=== PATIENT | male | born 1975 | race Caucasian/White ===

== ENCOUNTER 2020-03-18 10:19 | Emergency (ER) | payer OTHER ==
[~2020-03-18] VITALS: Ht 193 cm; Wt 132.9 kg
[2020-03-18] MEDS ORDERED: FLONASE 0.05%50 MCG NARES (10:36)
[2020-03-18] MEDS ORDERED: ASPIRIN EC325 M1 PO (10:37)
[2020-03-18 10:45] LABS: ABSOLUTE NEUTROPHILS 3.6 thou/uL (1.4-8.2); BASOPHILS 0.8 % (0.0-2.0); EOSINOPHILS 1.3 % (0.0-3.0); HEMATOCRIT 44.5 % (42.0-52.0); LYMPHOCYTES 35.2 % (24.0-44.0); MCH 30.3 pg (26.0-34.0); MCHC 33.6 g/dL (28.0-37.0); MCV 90.2 fL (80.0-100.0); MONOCYTES 8.2 % (1.0-8.0); PLATELET COUNT 235 thou/uL (150-400); POLYS 54.5 % (36.0-66.0); RBC 4.93 mil/uL (4.50-6.00); RDW 13.1 % (10.5-14.5); WBC 6.5 thou/uL (4.0-11.0)
[2020-03-18 11:03] LABS: ANION GAP 8 mmol/L (7-16); BUN 12 mg/dL (7-18); CALCIUM 9.4 mg/dL (8.5-10.1); CHLORIDE 105 mmol/L (98-107); CO2 25 mmol/L (21-32); GLUCOSE 109 mg/dL (74-106); POTASSIUM 4.2 mmol/L (3.5-5.1); SODIUM 138 mmol/L (136-145)
[2020-03-18 11:11] LABS: TROPONIN-I <0.06 ng/mL (<0.06)
[2020-03-18] MEDS ORDERED: VOLTAREN GEL 1100 G2 TOP (11:36)
[2020-03-18 12:14] VITALS: BP 115/69
--- NOTE | 2020-03-18 15:36 | EKG ---
[facility] [place] [address] ELECTROCARDIOGRAM REPORT Name: BLAKE CHUNG Room #: DEP [facility]#: [id number] Admission: 03/18/20 Attend Phys: Discharge: 03/18/20 Date of : 73 Report #: [id number] THIS REPORT FOR: cc: CLIF - [facility] family physician/PCP CLIF - [place] family physician/PCP Mike Foley MD 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
== END 2020-03-18 12:15 | disposition home or self-care (01) ==
LOC: ER 10:19
PROVIDERS: Emergency Medicine
DX: R07.89 Other chest pain (principal); Z79.82 Long term (current) use of aspirin; Z79.899 Other long term (current) drug therapy; Z91.013 Allergy to seafood